=== PATIENT | female | born 1995 | race American Indian/Alaskan Native ===

== ENCOUNTER 2019-07-18 10:11 | Day surgery (SDC) | payer MEDICAID ==
[~2019-07-18 10:11] MED LIST: ceFAZolin/Water 2 GM/20 ML 2 GM/20 ML SYRINGE IV NR
[2019-07-18] MEDS ORDERED: BUPIVACAINE/PF (0.25%) 2.5 MG/ML 30 ML VIAL INFILTRATI ONE ×3 (10:24→13:31)
[2019-07-18] MEDS ORDERED: fentaNYL 100 MCG/2 ML INJ IV ONE (11:23)
--- NOTE | 2019-07-18 11:23 | Anesthesia Day of Surgery ---
Anesthesia Day of Surgery - Day of Surgery Patient Examined: Yes Patient H&P Reviewed: Yes Patient is NPO: Yes
--- NOTE | 2019-07-18 11:23 | Anesthesia Consultation ---
Anesthesia Consult and Med Hx Date of service: 07/18/19 - Airway Anesthetic Teeth Evaluation: Good ROM Head & Neck: Adequate Mental/Hyoid Distance: Adequate Mallampati Class: Class II Intubation Access Assessment: Probably Good - Pulmonary Exam CTA: Yes - Cardiac Exam Cardiac Exam: RRR - Pre-Operative Health Status ASA Pre-Surgery Classification: ASA2 Proposed Anesthetic Plan: General - Pulmonary Hx Smoking: Yes (1/2 PPD X 6 YRS) Hx Respiratory Symptoms: No Hx Sleep Apnea: No (ANIL PRE SCREEN NEGATIVE) - Cardiovascular System Hx Hypertension: No Hx Heart Attack/AMI: No - Central Nervous System CVA: No - Gastrointestinal Hx Gastroesophageal Reflux Disease: No - Endocrine Hx Renal Disease: No Hx Liver Disease: No Hx Insulin Dependent Diabetes: No Hx Non-Insulin Dependent Diabetes: No Hx Thyroid Disease: No - Other Systems Hx Substance Use: Yes (daily marijuana; none today) Hx Obesity: No - Additional Comments Anesthesia Medical History Comments: No prior anesthetics. No FHx anesthetic complications.
[2019-07-18] MEDS ORDERED: PROPOFOL 200 MG/20 ML VIAL IV ONE (11:43)
[2019-07-18] MEDS ORDERED: HYDROmorphone 1 MG/1 ML INJ ONE (11:43)
[2019-07-18] MEDS ORDERED: LIDOCAINE MPF (2%) 20 MG/1 ML VIAL 5 ML ONE (11:43)
[2019-07-18] MEDS ORDERED: MIDAZOLAM 2 MG/2 ML INJ IV NR (12:00)
[2019-07-18] MEDS ORDERED: GABAPENTIN 300 MG CAP PO NR (12:00)
[2019-07-18] MEDS ORDERED: SCOPOLAMINE TRANSDERMAL PATCH 72 HR TD NR (12:00)
[2019-07-18] MEDS ORDERED: LACTATED RINGERS 1,000 ML IV SCH (12:00)
[2019-07-18] MEDS ORDERED: CELECOXIB 200 MG CAP PO NR (12:00)
[2019-07-18] MEDS ORDERED: SODIUM CHLORIDE 0.9% IRR 1,000 ML BOTTLE IR ONE (13:31)
--- NOTE | 2019-07-18 14:31 | Procedure Note ---
Date of procedure: 07/18/19 Pre-op diagnosis: Displaced right tibia-fibula fracture Post-op diagnosis: same Procedure: Closed reduction insertion of intramedullary nail right tibia Procedure The patient was brought to the OR placed in the OR table in supine position following induction of regional anesthesia patient for right lower extremity was prepped and draped in the usual sterile manner a timeout procedure was done to identify the patient and the correct operative site. A midline incision was made over the patellar tendon was taken down sharply through skin and subcutaneous deep tendon was incised longitudinally withdraws down to the proximal tibial articular surface.Large awl was used to enter the medullary can followed by insertion of a bolster a guidewire under C-arm visualization the fracture site was identified and using gentle manipulation the guidewire was pl aced into the distal tibia following this the size measurements were taken on 11 x 375 mm gal was chosen. The medullary canal was then reamed up to a 12.5 mm diameter followed by insertion of the intramedullary gal using the antegrade technique the guidewire was removed followed by placement of 2 proximal locking screws again under C-arm direction this was then followed by placement of two distal locking screws going from medial to lateral following this the wounds were copiously irrigated and the patellar tendon was repaired this was followed by closure of the skin and subcutaneous to postoperative dressing were applied the patient tolerated the procedure minimal complications she was taken to postanesthesia recovery in stable condition Anesthesia: GUILLERMINA Surgeon: TREY DOSS Guest Relations Representative: HARRIS PEREZ Estimated blood loss: minimal Condition: stable Disposition: PACU
[2019-07-18] MEDS ORDERED: KETOROLAC 30 MG/1 ML INJ ONE (14:38)
[2019-07-18] MEDS ORDERED: dexAMETHasone 20 MG/5 ML VIAL ONE (14:38)
[2019-07-18] MEDS ORDERED: ONDANSETRON 4 MG/2 ML INJ ONE (14:38)
[2019-07-18] MEDS: HYDROmorphone 1 MG/1 ML INJ IV PRN ×4 (14:58→15:36)
--- NOTE | 2019-07-18 15:24 | XRay Report ---
RIGHT TIBIA AND FIBULA 2 VIEWS INDICATION: RT TIBIA FX/RT TIBIA RODDING. COMPARISON: None. IMPRESSION: 3 minutes and 7 seconds of fluoroscopy time was provided by radiology during internal fi xation of a distal tibial fracture with intramedullary gal and screws. Alignment is near-anatomic. P lease correlate with the procedural report by Dr. Posey as needed. Signer Name: Cortez Montelongo Jr, MD Signed: 07/18/2019 3:20 PM Workstation Name: [id number]
[2019-07-18] MEDS ORDERED: oxyCODONE /ACETAMINOPHEN 5-325MG TAB PO ONE (16:21)
[2019-07-18 16:50] VITALS: BP 128/75
== END 2019-07-18 17:25 | disposition home or self-care (01) ==
LOC: OR 10:11
PROVIDERS: ATTEND Orthopaedic Surgery
DX: S82.391A Other fracture of lower end of right tibia, initial encounter for closed fracture (principal); F17.210 Nicotine dependence, cigarettes, uncomplicated; Z79.899 Other long term (current) drug therapy; Z98.890 Other specified postprocedural states; X58.XXXA Exposure to other specified factors, initial encounter; Y93.89 Activity, other specified; Y92.89 Other specified places as the place of occurrence of the external cause; Y99.8 Other external cause status
CPT/HCPCS: 27759; 73590; 81025; J0690; J1100; J1170; J1885; J2250; J2405; J2704; J3010; J7120; L8699